=== PATIENT | female | born 1985 | race Two or more races ===

== ENCOUNTER 2018-07-03 19:42 | Emergency (ER) | payer MEDICAID ==
[~2018-07-03] VITALS: Ht 152.4 cm; Wt 60.8 kg
[2018-07-03 21:17] LABS: Urine Bacteria FEW /hpf (None Seen); Urine Blood Negative /uL (Negative); Urine Specific Gravity 1.003 (1.001-1.035); Urine WBC 1 /hpf (0 - 5)
[2018-07-03 22:01] LABS: Basophils # (auto) 0.1 uL; Basophils % (auto) 0.6 % (0.0-2.0); Eosinophils # (auto) 0.1 uL; Eosinophils % (auto) 1.1 % (0.0-7.0); Hemoglobin 12.8 g/dL (12.2-16.2); Lymphocytes # (auto) 1.9 uL; Lymphocytes % (auto) 21.7 % (10.0-50.0); Mean Corpuscular Hemoglobin 29.4 pg (28.0-32.0); Mean Corpuscular Hgb Conc. 33.7 g/dL (32.0-36.0); Monocytes # (auto) 0.8 uL; Monocytes % (auto) 8.8 % (0.0-12.0); Neutrophils % (auto) 67.8 % (37.0-80.0); Nucleated Red Blood Cells % 0.1 %; Platelet Count (auto) 219 10^3/uL (140-450); Red Blood Cells 4.37 10^6/uL (4.0-5.20); Red Cell Distribution Width 12.9 % (11.8-14.3); White Blood Cell 8.9 10^3/uL (4.4-10.8)
[2018-07-03 22:35] LABS: Albumin 3.3 g/dL (3.4-5.0); BUN/Creatinine Ratio 13.5; Bilirubin, Total 0.1 mg/dL (0.2-1.0); Calcium 8.8 mg/dL (8.5-10.1); Potassium 3.8 mmol/L (3.5-5.1); Total Protein 6.8 g/dL (6.4-8.2)
[2018-07-04 02:49] VITALS: BP 105/57
== END 2018-07-04 03:22 | disposition home or self-care (01) ==
LOC: ER 19:42
DX: O34.81 Maternal care for other abnormalities of pelvic organs, first trimester (principal); N83.209 Unspecified ovarian cyst, unspecified side; Z3A.08 8 weeks gestation of pregnancy
CPT/HCPCS: 36415; 76801; 80053; 81001; 81025; 84702; 85025

== ENCOUNTER 2018-07-21 11:52 | Emergency (ER) | payer MEDICAID ==
[~2018-07-21] VITALS: Ht 152.4 cm; Wt 61.2 kg
[2018-07-21 12:00] VITALS: BP 118/68
[2018-07-21 12:46] LABS: Urine Bacteria FEW /hpf (None Seen); Urine Blood Negative /uL (Negative); Urine Specific Gravity 1.017 (1.001-1.035); Urine WBC 7 /hpf (0 - 5)
== END 2018-07-21 13:41 | disposition home or self-care (01) ==
LOC: ER 11:52
DX: O23.591 Infection of other part of genital tract in pregnancy, first trimester (principal); N76.0 Acute vaginitis; O23.41 Unspecified infection of urinary tract in pregnancy, first trimester; Z3A.13 13 weeks gestation of pregnancy
CPT/HCPCS: 81001; 81025; 87210

== ENCOUNTER 2018-09-13 11:28 | Emergency (ER) | payer MEDICAID ==
[~2018-09-13] VITALS: Ht 154.9 cm; Wt 62.6 kg
[2018-09-13 11:34] VITALS: BP 136/85
== END 2018-09-13 12:53 | disposition home or self-care (01) ==
LOC: ER 11:28
DX: O26.892 Other specified pregnancy related conditions, second trimester (principal); N64.4 Mastodynia; Z3A.16 16 weeks gestation of pregnancy